=== PATIENT | male | born 1955 | race Caucasian/White ===

== ENCOUNTER 2023-09-23 19:39 | Inpatient (IN) | payer OTHER, MEDICAID ==
[~2023-09-23] VITALS: Ht 167.6 cm; Wt 99.4 kg
[2023-09-23 21:43] LABS: Basophils # (auto) 0.1 10 ^3/uL (0-0.2); Basophils % (auto) 1.1 % (0.0-2.0); Eosinophils # (auto) 0.2 10 ^3/uL (0-0.8); Eosinophils % (auto) 4.5 % (0.0-7.0); Neutrophils # (auto) 2.8 10 ^3/uL (1.6-8.6); Nucleated Red Blood Cells % 0.1 %
[2023-09-23 21:44] LABS: Hematocrit 31.7 % (41.0-53.0); Hemoglobin 9.7 g/dL (13.5-17.5); Lymphocytes # (auto) 1.3 10 ^3/uL (0.4-5.4); Lymphocytes % (auto) 25.4 % (10.0-50.0); Mean Corpuscular Hemoglobin 25.3 pg (28.0-32.0); Mean Corpuscular Hgb Conc. 30.5 g/dL (32.0-36.0); Mean Corpuscular Volume 82.8 fL (80.0-100.0); Monocytes # (auto) 0.8 10 ^3/uL (0-1.3); Monocytes % (auto) 15.7 % (0.0-12.0); Neutrophils % (auto) 53.3 % (37.0-80.0); Red Blood Cells 3.83 10^6/uL (4.5-5.90); Red Cell Distribution Width 19.7 % (11.8-14.3); White Blood Cell 5.2 10^3/uL (4.4-10.8)
[2023-09-23 22:02] LABS: Alanine Aminotransferase 26 U/L (7-40); Albumin 3.4 g/dL (3.2-4.8); Alkaline Phosphatase 248 U/L (46-116); Anion Gap 7 (5-15); Aspartate Aminotransferase 27 U/L (13-40); Bilirubin, Total 0.4 mg/dL (0.2-1.0); Blood Urea Nitrogen 12 mg/dL (9-23); Calcium 9.2 mg/dL (8.7-10.4); Carbon Dioxide 25 mmol/L (20-30); Chloride 106 mmol/L (98-107); Glucose 101 mg/dL (74-106); Potassium 4.1 mmol/L (3.5-5.1); Sodium 138 mmol/L (136-145); Total Protein 6.5 g/dL (5.7-8.2)
[2023-09-24] MEDS: IOHEXOL 350 MG/ML 100ML IJ ONE (02:57)
[2023-09-24] MEDS: FUROSEMIDE 40 MG/4 ML VIAL IV ONE (06:45)
[2023-09-24 11:12] LABS: Urine Bacteria FEW /hpf (None Seen); Urine Blood Negative /uL (Negative); Urine Clarity Clear (Clear); Urine Color Light-Yellow (Yellow); Urine Hyaline Cast FEW /lpf (0 - 2); Urine Protein, UAD 1+ (Negative); Urine Specific Gravity 1.016 (1.001-1.035); Urine Urobilinogen Normal (Negative); Urine WBC 6 /hpf (0 - 3); Urine pH 6.5 (5.0-9.0)
[2023-09-24] MEDS ORDERED: DEXTROSE (50%) 50ML SYRG IV PRN (11:30)
[2023-09-24] MEDS: InsuLIN REG 1unit/0.01ml Soln (100units/ml) SC SCH (12:35)
[2023-09-24] MEDS: ACCU-CHEK COMFORT CURVE STRIP VI SCH (12:35)
[2023-09-24 13:23] VITALS: PULSE 98; RESP 20; O2SAT 95
[2023-09-24] MEDS: IPRATROPIUM BROM 0.5 MG/2.5ML INH SOL ONE (14:33)
[2023-09-24] MEDS: ALBUTEROL SULF 2.5 MG/0.5ML(0.5%) NEB SOLN ONE (14:33)
[2023-09-24] MEDS: IPRATROPIUM BROM 0.5 MG/2.5ML INH SOL NEB SCH (15:30)
[2023-09-24] MEDS: ALBUTEROL SULF 2.5 MG/0.5ML(0.5%) NEB SOLN NEB SCH (15:30)
[2023-09-24 18:00] VITALS: PULSE 90; RESP 20; O2SAT 96
[2023-09-24 18:01] VITALS: O2SAT 96
[2023-09-24 18:10] VITALS: PULSE 92; RESP 20; O2SAT 98
[2023-09-24 22:05] VITALS: PULSE 87; RESP 20; O2SAT 95
[2023-09-24 22:16] VITALS: PULSE 87; RESP 20; O2SAT 99
[2023-09-25] VITALS (10 sets, daily range): BP systolic 146–148; BP diastolic 57–85; PULSE 58–95; RESP 18–20; TEMP 96–97.9; O2SAT 93–99
[2023-09-25] MEDS: ATORVASTATIN 20 MG TAB PO SCH (01:42)
[2023-09-25] MEDS: METOPROLOL TARTRATE 50 MG TAB PO SCH (01:43)
[2023-09-25] MEDS: FUROSEMIDE 20 MG/2 ML VIAL IV SCH (07:44)
[2023-09-25] MEDS: ENOXAPARIN SOD 40 MG/0.4 ML SYRINGE SC SCH (11:04)
[2023-09-25 15:36] LABS: Hemoglobin 9.5 g/dL (13.5-17.5); Nucleated Red Blood Cells % 0.1 %; White Blood Cell 5.2 10^3/uL (4.4-10.8)
[2023-09-25 15:38] LABS: Basophils # (auto) 0 10 ^3/uL (0-0.2); Basophils % (auto) 0.9 % (0.0-2.0); Eosinophils # (auto) 0.3 10 ^3/uL (0-0.8); Eosinophils % (auto) 5.3 % (0.0-7.0); Hematocrit 31.6 % (41.0-53.0); Lymphocytes # (auto) 1.4 10 ^3/uL (0.4-5.4); Lymphocytes % (auto) 27.5 % (10.0-50.0); Mean Corpuscular Hemoglobin 24.8 pg (28.0-32.0); Mean Corpuscular Hgb Conc. 30.2 g/dL (32.0-36.0); Mean Corpuscular Volume 82.1 fL (80.0-100.0); Monocytes # (auto) 0.9 10 ^3/uL (0-1.3); Monocytes % (auto) 17.5 % (0.0-12.0); Neutrophils # (auto) 2.6 10 ^3/uL (1.6-8.6); Neutrophils % (auto) 48.8 % (37.0-80.0); Red Blood Cells 3.85 10^6/uL (4.5-5.90); Red Cell Distribution Width 19.5 % (11.8-14.3)
[2023-09-25 15:52] LABS: Alanine Aminotransferase 23 U/L (7-40); Albumin 3.1 g/dL (3.2-4.8); Alkaline Phosphatase 204 U/L (46-116); Anion Gap 7 (5-15); Aspartate Aminotransferase 23 U/L (13-40); BUN/Creatinine Ratio 12.6 (10.0-20.0); Bilirubin, Total 0.4 mg/dL (0.2-1.0); Blood Urea Nitrogen 12 mg/dL (9-23); Carbon Dioxide 25 mmol/L (20-30); Chloride 107 mmol/L (98-107); Glucose 116 mg/dL (74-106); Potassium 4.2 mmol/L (3.5-5.1); Sodium 139 mmol/L (136-145); Total Protein 6.1 g/dL (5.7-8.2)
[2023-09-25] MEDS: ACETAMINOPHEN 325 MG TAB PO PRN (20:09)
[2023-09-26] VITALS (11 sets, daily range): BP systolic 108–133; BP diastolic 52–66; PULSE 55–95; RESP 14–19; TEMP 97.2–98.1; O2SAT 80–97
[2023-09-26 09:42] LABS: Hepatitis B Surface Antigen Negative (Negative)
[2023-09-26 10:03] LABS: Hepatitis C Antibody Negative (Negative)
[2023-09-26] MEDS: TEMAZEPAM 15 MG CAP PO PRN (22:10)
[2023-09-27] VITALS (9 sets, daily range): BP systolic 109–144; BP diastolic 37–57; PULSE 48–86; RESP 18–20; TEMP 97.7–98.2; O2SAT 92–100
[2023-09-27 11:12] LABS: Hematocrit 29.3 % (41.0-53.0); Mean Corpuscular Hemoglobin 25.4 pg (28.0-32.0); Mean Corpuscular Hgb Conc. 30.8 g/dL (32.0-36.0); Mean Corpuscular Volume 82.6 fL (80.0-100.0); Red Blood Cells 3.55 10^6/uL (4.5-5.90); Red Cell Distribution Width 19.2 % (11.8-14.3)
[2023-09-27 11:30] LABS: Alanine Aminotransferase 23 U/L (7-40); Alkaline Phosphatase 200 U/L (46-116); Anion Gap 4 (5-15); Aspartate Aminotransferase 31 U/L (13-40); BUN/Creatinine Ratio 16.7 (10.0-20.0); Bilirubin, Total 0.4 mg/dL (0.2-1.0); Blood Urea Nitrogen 14 mg/dL (9-23); Calcium 8.4 mg/dL (8.5-10.1); Carbon Dioxide 28 mmol/L (20-30); Chloride 106 mmol/L (98-107); Glucose 201 mg/dL (74-106); Sodium 138 mmol/L (136-145); Total Protein 5.9 g/dL (5.7-8.2)
[2023-09-27 11:57] LABS: Band Neutrophils % (manual) 0; Basophils % (manual) 0 (0.0-2.0); Blast Cells 0; Metamyelocytes % 0; Myelocytes % 0; Promyelocytes % 0; Reactive Lymphocytes 0
[2023-09-27 14:24] LABS: Eosinophils % (manual) 6 (0-7); Lymphocytes % (manual) 23 (10.0-50.0); Monocytes % (manual) 20 (0-12); Platelet Estimate Adequate
[2023-09-28] VITALS (10 sets, daily range): BP systolic 123–147; BP diastolic 38–67; PULSE 55–71; RESP 17–20; TEMP 98.1–99.1; O2SAT 91–100
[2023-09-28 05:47] LABS: White Blood Cell 4.3 10^3/uL (4.4-10.8)
[2023-09-28 05:51] LABS: Hematocrit 28.7 % (41.0-53.0); Mean Corpuscular Hemoglobin 25.4 pg (28.0-32.0); Mean Corpuscular Hgb Conc. 31.2 g/dL (32.0-36.0); Mean Corpuscular Volume 81.3 fL (80.0-100.0); Red Blood Cells 3.53 10^6/uL (4.5-5.90); Red Cell Distribution Width 18.8 % (11.8-14.3)
[2023-09-28 06:00] LABS: Basophils % (manual) 0 (0.0-2.0); Blast Cells 0; Metamyelocytes % 0; Myelocytes % 0; Promyelocytes % 0; Reactive Lymphocytes 0
[2023-09-28 06:06] LABS: Anion Gap 4 (5-15); Calcium 8.7 mg/dL (8.7-10.4); Carbon Dioxide 26 mmol/L (20-30); Chloride 108 mmol/L (98-107); Potassium 4.1 mmol/L (3.5-5.1); Sodium 138 mmol/L (136-145)
[2023-09-28 06:12] LABS: BUN/Creatinine Ratio 19.6 (10.0-20.0); Blood Urea Nitrogen 18 mg/dL (9-23); Glucose 131 mg/dL (74-106)
[2023-09-28 08:24] LABS: Band Neutrophils % (manual) 1; Eosinophils % (manual) 4 (0-7); Lymphocytes % (manual) 19 (10.0-50.0); Monocytes % (manual) 8 (0-12); Platelet Estimate Adequate
[2023-09-28] MEDS: ASPirin 81 mg TAB PO ONE (14:57)
[2023-09-28] MEDS: NICOTINE 14 MG/24HR TOPICAL PATCH TD ONE (14:57)
[2023-09-28 15:41] LABS: Magnesium 1.8 mg/dL (1.6-2.6)
[2023-09-28] MEDS: FUROSEMIDE 40 MG/4 ML VIAL IV SCH (17:49)
[2023-09-28] MEDS: ATORVASTATIN 20 MG TAB PO SCH (21:59)
[2023-09-29] VITALS (8 sets, daily range): BP systolic 97–134; BP diastolic 36–66; PULSE 62–75; RESP 19–24; TEMP 97.9–98.6; O2SAT 87–96
[2023-09-29] MEDS: ASPirin 81 mg TAB PO SCH (09:41)
[2023-09-29] MEDS: NICOTINE 14 MG/24HR TOPICAL PATCH TD SCH (09:43)
[2023-09-29 10:24] LABS: Basophils # (auto) 0 10 ^3/uL (0-0.2); Basophils % (auto) 0.9 % (0.0-2.0); Eosinophils # (auto) 0.1 10 ^3/uL (0-0.8); Lymphocytes # (auto) 0.8 10 ^3/uL (0.4-5.4); White Blood Cell 4.2 10^3/uL (4.4-10.8)
[2023-09-29 10:31] LABS: Chloride 103 mmol/L (98-107); Potassium 4.1 mmol/L (3.5-5.1); Sodium 137 mmol/L (136-145)
[2023-09-29 10:32] LABS: Anion Gap 8 (5-15); Carbon Dioxide 26 mmol/L (20-30)
[2023-09-29 10:33] LABS: Calcium 8.5 mg/dL (8.5-10.1)
[2023-09-29 10:37] LABS: Glucose 191 mg/dL (74-106)
[2023-09-29 10:38] LABS: BUN/Creatinine Ratio 21.1 (10.0-20.0); Blood Urea Nitrogen 20 mg/dL (9-23); Eosinophils % (auto) 1.6 % (0.0-7.0); Hematocrit 29.4 % (41.0-53.0); Lymphocytes % (auto) 18.5 % (10.0-50.0); Mean Corpuscular Hemoglobin 24.7 pg (28.0-32.0); Mean Corpuscular Hgb Conc. 30.5 g/dL (32.0-36.0); Monocytes # (auto) 0.7 10 ^3/uL (0-1.3); Neutrophils # (auto) 2.6 10 ^3/uL (1.6-8.6); Nucleated Red Blood Cells % 0.2 %; Red Blood Cells 3.62 10^6/uL (4.5-5.90)
[2023-09-29 11:35] LABS: Amphetamine Screen, Urine Neg (NEGATIVE)
[2023-09-29 11:36] LABS: Barbiturate Scree,Urine Neg (NEGATIVE); Benzodiazephine Screen, Urine Neg (NEGATIVE); Cannabinoid Screen, Urine Neg (NEGATIVE); Cocaine Screen, Urine Neg (NEGATIVE); Opiate Scree,Urine Neg (NEGATIVE); Phencyclidine Screen, Urine Neg (NEGATIVE)
[2023-09-30] VITALS (16 sets, daily range): BP systolic 94–151; BP diastolic 38–63; PULSE 59–82; RESP 18–28; TEMP 97.3–99; O2SAT 92–98
[2023-09-30 06:01] LABS: White Blood Cell 4.5 10^3/uL (4.4-10.8)
[2023-09-30 06:05] LABS: Hematocrit 26.5 % (41.0-53.0); Hemoglobin 8.1 g/dL (13.5-17.5); Mean Corpuscular Hgb Conc. 30.7 g/dL (32.0-36.0); Mean Corpuscular Volume 81.4 fL (80.0-100.0); Red Blood Cells 3.25 10^6/uL (4.5-5.90); Red Cell Distribution Width 19.3 % (11.8-14.3)
[2023-09-30 06:10] LABS: INR 1.06 (0.9-1.15); Partial Thromboplastin Time 23.1 SEC (24.5-34.5); Prothrombin Time 11.1 sec (9.3-11.8)
[2023-09-30 06:19] LABS: Band Neutrophils % (manual) 0; Basophils % (manual) 0 (0.0-2.0); Blast Cells 0; Chloride 104 mmol/L (98-107); Metamyelocytes % 0; Myelocytes % 0; Potassium 4.5 mmol/L (3.5-5.1); Promyelocytes % 0; Reactive Lymphocytes 0; Sodium 137 mmol/L (136-145)
[2023-09-30 06:20] LABS: Anion Gap 6 (5-15); Carbon Dioxide 27 mmol/L (20-30)
[2023-09-30 06:21] LABS: Calcium 8.3 mg/dL (8.5-10.1)
[2023-09-30 06:25] LABS: BUN/Creatinine Ratio 23.5 (10.0-20.0); Blood Urea Nitrogen 23 mg/dL (9-23); Glucose 122 mg/dL (74-106)
[2023-09-30] MEDS: ALBUTEROL SULF 2.5 MG/0.5ML(0.5%) NEB SOLN NEB PRN (07:27)
[2023-09-30] MEDS: IPRATROPIUM BROM 0.5 MG/2.5ML INH SOL NEB PRN (07:27)
[2023-09-30 09:32] LABS: Eosinophils % (manual) 1 (0-7); Lymphocytes % (manual) 14 (10.0-50.0); Monocytes % (manual) 19 (0-12)
[2023-09-30 09:33] LABS: Platelet Estimate Adequate
[2023-09-30] MEDS: fentaNYL CITRATE 100 MCG/2 ML VL ONE (13:09)
[2023-09-30] MEDS: MIDAZOLAM HCL 2MG/2ML 2ml VIAL (1mg/ml) ONE (13:09)
[2023-09-30] MEDS: ANGIOMAX 250 MG VIAL IV ONE (13:09)
[2023-09-30] MEDS: IODIXANOL 320MG/ML 100ML BTL IV ONE (13:10)
[2023-09-30] MEDS: LIDOCAINE 2%HCL (LOCAL ANESTH.) INJ 20ML MDV ONE (13:10)
[2023-09-30] MEDS: SODIUM CHL 0.9% 0 ML ONE (13:10)
[2023-09-30] MEDS: HEPARIN IN NS 1000Units/500mL 1,500 ML ONE (13:10)
[2023-10-01] VITALS (11 sets, daily range): BP systolic 98–148; BP diastolic 41–72; PULSE 59–84; RESP 18–24; TEMP 97.4–98.6; O2SAT 20–98
[2023-10-01] MEDS: NICOTINE 21MG/24 HR TOPICAL PATCH TD SCH (10:26)
[2023-10-01 11:06] LABS: Basophils # (auto) 0 10 ^3/uL (0-0.2); Eosinophils # (auto) 0.1 10 ^3/uL (0-0.8); Eosinophils % (auto) 1.5 % (0.0-7.0); Monocytes # (auto) 0.8 10 ^3/uL (0-1.3); Neutrophils # (auto) 1.9 10 ^3/uL (1.6-8.6); White Blood Cell 3.8 10^3/uL (4.4-10.8)
[2023-10-01 11:08] LABS: Basophils % (auto) 0.7 % (0.0-2.0); Hematocrit 28.1 % (41.0-53.0); Hemoglobin 8.5 g/dL (13.5-17.5); Lymphocytes % (auto) 25.7 % (10.0-50.0); Mean Corpuscular Hemoglobin 24.9 pg (28.0-32.0); Mean Corpuscular Hgb Conc. 30.1 g/dL (32.0-36.0); Mean Corpuscular Volume 82.6 fL (80.0-100.0); Neutrophils % (auto) 50.8 % (37.0-80.0); Nucleated Red Blood Cells % 0.2 %; Red Cell Distribution Width 18.9 % (11.8-14.3)
[2023-10-01 11:12] LABS: Monocytes % (auto) 21.3 % (0.0-12.0)
[2023-10-01 11:32] LABS: Chloride 104 mmol/L (98-107); Sodium 137 mmol/L (136-145)
[2023-10-01 11:33] LABS: Anion Gap 3 (5-15); Carbon Dioxide 30 mmol/L (20-30)
[2023-10-01 11:34] LABS: Calcium 8.3 mg/dL (8.7-10.4)
[2023-10-01 11:38] LABS: BUN/Creatinine Ratio 21.9 (10.0-20.0); Blood Urea Nitrogen 21 mg/dL (9-23); Glucose 167 mg/dL (74-106)
[2023-10-01] MEDS: cefTRIAXone 1GM/50ML D5W 50 ML IV ONE (17:38)
[2023-10-01] MEDS: VANCOMYCIN 1GM/200ML 200 ML IV ONE (17:39)
[2023-10-01] MEDS ORDERED: VANCOMYCIN PER PHARMACY 0 MG IV SCH (22:00)
[2023-10-02] VITALS (11 sets, daily range): BP systolic 105–148; BP diastolic 45–61; PULSE 69–114; RESP 17–24; TEMP 98–98.9; O2SAT 91–98
[2023-10-02] MEDS: VANCOMYCIN 1GM/200ML 200 ML IV SCH (04:12)
[2023-10-02] MEDS: cefTRIAXone 1GM/50ML D5W 50 ML IV SCH (09:06)
[2023-10-02 09:45] LABS: Hemoglobin 8.5 g/dL (13.5-17.5); White Blood Cell 3.2 10^3/uL (4.4-10.8)
[2023-10-02 09:47] LABS: Hematocrit 28.8 % (41.0-53.0); Mean Corpuscular Hemoglobin 25.1 pg (28.0-32.0); Mean Corpuscular Hgb Conc. 29.5 g/dL (32.0-36.0); Mean Corpuscular Volume 85.2 fL (80.0-100.0); Red Blood Cells 3.38 10^6/uL (4.5-5.90); Red Cell Distribution Width 19.2 % (11.8-14.3)
[2023-10-02 09:54] LABS: Basophils % (manual) 0 (0.0-2.0); Blast Cells 0; Metamyelocytes % 0; Myelocytes % 0; Promyelocytes % 0; Reactive Lymphocytes 0
[2023-10-02 09:58] LABS: Anion Gap 10 (5-15); Calcium 7.9 mg/dL (8.5-10.1); Carbon Dioxide 24 mmol/L (20-30); Chloride 104 mmol/L (98-107); Potassium 4.5 mmol/L (3.5-5.1); Sodium 138 mmol/L (136-145)
[2023-10-02 10:01] LABS: Urine Bacteria None Seen /hpf (None Seen)
[2023-10-02 10:03] LABS: Glucose 168 mg/dL (74-106)
[2023-10-02 10:04] LABS: BUN/Creatinine Ratio 29.9 (10.0-20.0); Blood Urea Nitrogen 26 mg/dL (9-23)
[2023-10-02 10:21] LABS: Band Neutrophils % (manual) 1; Eosinophils % (manual) 1 (0-7); Lymphocytes % (manual) 32 (10.0-50.0); Monocytes % (manual) 17 (0-12)
[2023-10-02 10:21] LABS: Urine Blood Negative /uL (Negative); Urine Clarity Clear (Clear); Urine Color Light-Yellow (Yellow); Urine Hyaline Cast FEW /lpf (0 - 2); Urine Mucus FEW (None Seen); Urine Protein, UAD TRACE (Negative); Urine Urobilinogen Normal (Negative); Urine WBC 1 /hpf (0 - 3)
[2023-10-02 10:22] LABS: Anisocytosis Slight
[2023-10-02 10:23] LABS: Hypochromia Slight; Platelet Estimate Adequate
[2023-10-02] MEDS ORDERED: ONDANSETRON HCL 4 MG/2 ML VIAL IV PRN (17:15)
[2023-10-02] MEDS: LORazepam 2MG/ML-1ML VIAL IV PRN (20:28)
[2023-10-03] VITALS (11 sets, daily range): BP systolic 114–142; BP diastolic 45–85; PULSE 58–79; RESP 19–23; TEMP 97.8–98.8; O2SAT 91–98
[2023-10-03 13:52] LABS: Alanine Aminotransferase 25 U/L (7-40); Albumin 3.1 g/dL (3.2-4.8); Alkaline Phosphatase 169 U/L (46-116); Anion Gap 4 (5-15); Aspartate Aminotransferase 44 U/L (13-40); BUN/Creatinine Ratio 25.9 (10.0-20.0); Bilirubin, Total 0.2 mg/dL (0.2-1.0); Blood Urea Nitrogen 21 mg/dL (9-23); Calcium 8.5 mg/dL (8.7-10.4); Carbon Dioxide 30 mmol/L (20-30); Chloride 105 mmol/L (98-107); Glucose 129 mg/dL (74-106); Potassium 4.1 mmol/L (3.5-5.1); Sodium 139 mmol/L (136-145); Total Protein 6.1 g/dL (5.7-8.2)
[2023-10-04] VITALS (10 sets, daily range): BP systolic 114–139; BP diastolic 37–62; PULSE 53–89; RESP 18–23; TEMP 97.5–98.1; O2SAT 91–98
[2023-10-05] VITALS (11 sets, daily range): BP systolic 103–153; BP diastolic 39–84; PULSE 64–99; RESP 18–24; TEMP 96–98.5; O2SAT 93–100
[2023-10-06] VITALS (14 sets, daily range): BP systolic 113–154; BP diastolic 62–102; PULSE 56–86; RESP 18–28; TEMP 97.5–98.8; O2SAT 90–100
[2023-10-06 13:50] LABS: Basophils # (auto) 0 10 ^3/uL (0-0.2); Basophils % (auto) 0.5 % (0.0-2.0); Eosinophils # (auto) 0.1 10 ^3/uL (0-0.8); Lymphocytes # (auto) 1.8 10 ^3/uL (0.4-5.4); Lymphocytes % (auto) 27.9 % (10.0-50.0); Neutrophils # (auto) 3.4 10 ^3/uL (1.6-8.6); Nucleated Red Blood Cells % 0.1 %; White Blood Cell 6.4 10^3/uL (4.4-10.8)
[2023-10-06 13:52] LABS: Alanine Aminotransferase 33 U/L (7-40); Albumin 3.2 g/dL (3.2-4.8); Alkaline Phosphatase 200 U/L (46-116); Anion Gap 6 (5-15); BUN/Creatinine Ratio 28.6 (10.0-20.0); Bilirubin, Total 0.3 mg/dL (0.2-1.0); Blood Urea Nitrogen 22 mg/dL (9-23); Carbon Dioxide 31 mmol/L (20-30); Chloride 104 mmol/L (98-107); Glucose 108 mg/dL (74-106); Magnesium 1.9 mg/dL (1.6-2.6); Potassium 4.3 mmol/L (3.5-5.1); Sodium 141 mmol/L (136-145); Total Protein 6.6 g/dL (5.7-8.2)
[2023-10-06 13:55] LABS: Eosinophils % (auto) 1.7 % (0.0-7.0); Hematocrit 27.1 % (41.0-53.0); Hemoglobin 8.5 g/dL (13.5-17.5); Mean Corpuscular Hemoglobin 25.1 pg (28.0-32.0); Mean Corpuscular Hgb Conc. 31.3 g/dL (32.0-36.0); Mean Corpuscular Volume 80.2 fL (80.0-100.0); Monocytes % (auto) 16.5 % (0.0-12.0); Neutrophils % (auto) 53.4 % (37.0-80.0); Red Blood Cells 3.38 10^6/uL (4.5-5.90); Red Cell Distribution Width 19.3 % (11.8-14.3)
[2023-10-06 13:56] LABS: Aspartate Aminotransferase 44 U/L (13-40)
[2023-10-07 05:00] VITALS: BP 141/53; PULSE 65; RESP 20; TEMP 98.3; O2SAT 97
[2023-10-07 08:00] VITALS: PULSE 67
== END 2023-10-07 16:25 | DRG 299 ==
LOC: ER 19:39 → TELE 09-24 11:28 → TELE-WESTW 09-25 13:47
PROVIDERS: ADMIT Nurse Practitioner Family; ATTEND Internal Medicine
PROC: B41GYZZ Fluoroscopy of Left Lower Extremity Arteries using Other Contrast (ICD-10-PCS; principal; 2023-09-30)
PROC: B41FYZZ Fluoroscopy of Right Lower Extremity Arteries using Other Contrast (ICD-10-PCS; 2023-09-30)
DX: E11.51 Type 2 diabetes mellitus with diabetic peripheral angiopathy without gangrene (principal); I50.33 Acute on chronic diastolic (congestive) heart failure; J96.00 Acute respiratory failure, unspecified whether with hypoxia or hypercapnia; J44.1 Chronic obstructive pulmonary disease with (acute) exacerbation; L03.116 Cellulitis of left lower limb; L03.115 Cellulitis of right lower limb; R18.8 Other ascites; Z59.00 Homelessness unspecified; J44.0 Chronic obstructive pulmonary disease with (acute) lower respiratory infection; I11.0 Hypertensive heart disease with heart failure; K74.60 Unspecified cirrhosis of liver; E11.65 Type 2 diabetes mellitus with hyperglycemia; F15.10 Other stimulant abuse, uncomplicated; F10.10 Alcohol abuse, uncomplicated; K42.9 Umbilical hernia without obstruction or gangrene; D72.819 Decreased white blood cell count, unspecified; E11.621 Type 2 diabetes mellitus with foot ulcer; Y90.9 Presence of alcohol in blood, level not specified; R26.2 Difficulty in walking, not elsewhere classified; F17.200 Nicotine dependence, unspecified, uncomplicated; D63.8 Anemia in other chronic diseases classified elsewhere; E66.01 Morbid (severe) obesity due to excess calories; L97.529 Non-pressure chronic ulcer of other part of left foot with unspecified severity; D32.9 Benign neoplasm of meninges, unspecified; Z74.01 Bed confinement status; Z86.73 Personal history of transient ischemic attack (TIA), and cerebral infarction without residual deficits; Z68.35 Body mass index [BMI] 35.0-35.9, adult
CPT/HCPCS: 36415; 70450; 71045; 71275; 75716; 80048; 80053; 80061; 80202; 80307; 81001; 82962; 83036; 83605; 83735; 83880; 84443; 84484; 85007; 85025; 85027; 85379; 85610; 85730; 86803; 86850; 86900; 86901; 87040; 87340; 93005; 93306; 93925; 93970; 94640; 97110; 97116; 97163; 97530; 99152; G0378; J1815; J2250; Q9967